=== PATIENT | female | born 1955 | race Caucasian/White ===

== ENCOUNTER → 2019-04-16 | Outpatient (REF) | payer MEDICARE ==
[2019-04-16 19:03] LABS: APPEARANCE, URINE CLEAR (CLEAR); BACTERIA, URINE AUTO NEGATIVE (NEGATIVE); BILIRUBIN, URINE AUTO NEGATIVE (NEGATIVE); BLOOD, URINE BLOOD NEGATIVE (NEGATIVE); COLOR, URINE YELLOW (YELLOW); GLUCOSE, URINE (UA) AUTO NEGATIVE (NEGATIVE); KETONE, URINE AUTO NEGATIVE (NEGATIVE); LEUKOCYTE ESTERASE, URINE AUTO NEGATIVE (NEGATIVE); MUCUS, URINE SMALL (NEGATIVE); NITRITE, URINE AUTO NEGATIVE (NEGATIVE); PROTEIN, URINE AUTO NEGATIVE (NEGATIVE); RBC, URINE AUTO 1 /HPF (0-3); SPECIFIC GRAVITY URINE AUTO 1.017 (1.002-1.035); SQUAMOUS EPITHELIAL CELL UR AU 1 /HPF (0-6); UROBILINOGEN, URINE AUTO 0.2 mg/dL (0.0-2.0); WBC, URINE AUTO 0 /HPF (0-3)
== END ==
LOC: M SMT 17:10
PROVIDERS: ATTEND Nurse Practitioner Women's Health
DX: N30.80 Other cystitis without hematuria (principal)
CPT/HCPCS: 81001; 87086; 88108; G0463

== ENCOUNTER → 2020-04-18 | Outpatient (REF) | payer MEDICARE ==
[2020-04-18 19:18] LABS: APPEARANCE, URINE TURBID (CLEAR); BACTERIA, URINE AUTO NEGATIVE (NEGATIVE); BILIRUBIN, URINE AUTO NEGATIVE (NEGATIVE); BLOOD, URINE BLOOD NEGATIVE (NEGATIVE); COLOR, URINE YELLOW (YELLOW); GLUCOSE, URINE (UA) AUTO NEGATIVE (NEGATIVE); KETONE, URINE AUTO TRACE mg/dL (NEGATIVE); LEUKOCYTE ESTERASE, URINE AUTO 1+ (NEGATIVE); MUCUS, URINE SMALL (NEGATIVE); NITRITE, URINE AUTO NEGATIVE (NEGATIVE); PROTEIN, URINE AUTO 1+ mg/dL (NEGATIVE); RBC, URINE AUTO 0 /HPF (0-3); SQUAMOUS EPITHELIAL CELL UR AU 1 /HPF (0-6); UROBILINOGEN, URINE AUTO 0.2 mg/dL (0.0-2.0); WBC, URINE AUTO 3 /HPF (0-3)
== END ==
LOC: M SMT 16:56
PROVIDERS: ATTEND Nurse Practitioner Women's Health
DX: N30.80 Other cystitis without hematuria (principal)
CPT/HCPCS: 81001; 87086; G0463

== ENCOUNTER → 2021-04-05 | Outpatient (REF) | payer MEDICARE ==
[2021-04-05 13:28] LABS: APPEARANCE, URINE HAZY (CLEAR); BACTERIA, URINE AUTO NEGATIVE (NEGATIVE); BILIRUBIN, URINE AUTO NEGATIVE (NEGATIVE); BLOOD, URINE BLOOD NEGATIVE (NEGATIVE); CALCIUM OXALATE CRYSTALS SMALL; COLOR, URINE YELLOW (YELLOW); GLUCOSE, URINE (UA) AUTO 3+ mg/dL (NEGATIVE); KETONE, URINE AUTO NEGATIVE (NEGATIVE); LEUKOCYTE ESTERASE, URINE AUTO NEGATIVE (NEGATIVE); MUCUS, URINE SMALL (NEGATIVE); NITRITE, URINE AUTO NEGATIVE (NEGATIVE); PROTEIN, URINE AUTO 1+ mg/dL (NEGATIVE); RBC, URINE AUTO 2 /HPF (0-3); SPECIFIC GRAVITY URINE AUTO 1.016 (1.002-1.035); SQUAMOUS EPITHELIAL CELL UR AU 1 /HPF (0-6); UROBILINOGEN, URINE AUTO 0.2 mg/dL (0.0-2.0); WBC, URINE AUTO 5 /HPF (0-3)
== END ==
LOC: M SMT 12:41
PROVIDERS: ATTEND Nurse Practitioner Women's Health
DX: N30.80 Other cystitis without hematuria (principal); Z87.442 Personal history of urinary calculi; N28.1 Cyst of kidney, acquired; R31.0 Gross hematuria
CPT/HCPCS: 81001; 87086; 88108; G0463

== ENCOUNTER 2021-07-19 07:32 | Day surgery (SDC) | payer MEDICARE ==
[~2021-07-19] VITALS: Ht 160 cm; Wt 103.9 kg
[~2021-07-19 07:32] MED LIST: AMLO1TAB24 PO; CIPROFLOXACIN 400 MG in IV 1 EA IV ONE; COLC0.6T47 PO; COLE1TAB PO; CONRAY-60 60% 50ML VIAL (Q9961) As Ordered ONE; CREO3600 PO; DULO30CA9 PO; ENAL1TAB46 PO; FURO20TA2 PO; ISOS1TAB35 PO; LEVOTAB10 PO; LIDOCAINE 2% 100MG/5ML SDV (FOR ANES.) As Ordered ONE; LIVA2TAB PO; LR 1,000 ML IV ONE; METF500T13 PO; MIDAZOLAM INJ 2MG/2ML VIAL (J2250 PER 1MG) As Ordered ONE; NITR0.4S14 SL; PROTPAK PO; RANE1000 PO; ROPI0.5T3 PO; fentaNYL 100 MCG/2 ML INJECTION (J3010) As Ordered ONE; propofoL 200 MG/20 ML VIAL As Ordered ONE
[2021-07-19] MEDS ORDERED: ROCURONIUM BROMIDE 50 MG/5 ML VIAL As Ordered ONE (07:46)
[2021-07-19] MEDS ORDERED: ONDANSETRON 4MG/2ML VIAL As Ordered ONE (07:49)
[2021-07-19] MEDS ORDERED: GLYCOPYRROLATE INJ 0.2 MG/ML 2 ML VIAL As Ordered ONE (07:49)
[2021-07-19] MEDS ORDERED: ACETAMINOPHEN 1000MG 100ML IV BTL (OFIRMEV) (J0131 PER 10MG) As Ordered ONE (09:05)
[2021-07-19] MEDS ORDERED: METOCLOPRAMIDE INJ 10MG/2ML VIAL (J2765 PER 1) As Ordered ONE (09:05)
[2021-07-19] MEDS ORDERED: ESMOLOL INJ 100MG/10ML VIAL As Ordered ONE (09:07)
--- NOTE | 2021-07-19 09:27 | REP ---
INDICATION: BILATERAL URETEROSCOPY. COMPARISON: None. TECHNIQUE: Intraoperative fluoroscopic imaging using portable C-arm technique. FINDINGS: Images demonstrate bilateral ureteral stent placement. Total fluoroscopic time 28 seconds. IMPRESSION: Status post bilateral ureteral stent placement. <Electronically signed by Star Valentin > 07/19/21 [id number]
[2021-07-19] MEDS ORDERED: OXYB5TAB10 PO (09:42)
[2021-07-19 10:00] VITALS: BP 148/67
[2021-07-19] MEDS ORDERED: fentaNYL 100 MCG/2 ML INJECTION (J3010) IV PRN (10:20)
[2021-07-19] MEDS ORDERED: ONDANSETRON 4MG/2ML VIAL IV PRN (10:20)
[2021-07-19] MEDS ORDERED: LR 1,000 ML IV SCH (10:20)
[2021-07-19] MEDS ORDERED: ACETAMINOPHEN TAB 650MG DOSE (2X325MG) PO PRN (10:25)
[2021-07-19] MEDS ORDERED: oxyBUTYnin 5 MG TAB PO PRN (10:25)
--- NOTE | 2021-07-19 10:42 | RO ---
OPERATIVE NOTE DATE OF OPERATION: 07/19/2021 PREOPERATIVE DIAGNOSIS: Gross hematuria. POSTOPERATIVE DIAGNOSIS: Gross hematuria. PROCEDURE: Cystoscopy, bilateral ureteroscopy, bilateral retrograde pyelogram with intraop interpretation of images, bilateral ureteral stent placement. SURGEON: Darren Schrader MD INFORMATION TECHNOLOGY ADVISOR: None. ANESTHESIA: General. OPERATIVE INDICATIONS: This is a 65-year-old female who has had persistent gross hematuria. She has undergone an outpatient workup which was unremarkable. Since she has continued to have hematuria it was recommended she get more thorough workup here in the operating room. DESCRIPTION OF PROCEDURE: The patient was brought to the operating room and general anesthesia was induced. Prophylactic antibiotics were infused. She was placed in dorsal lithotomy position and prepped and draped in usual sterile fashion. Rigid cystoscope was inserted in urethral meatus and advanced to the bladder. The bladder was then thoroughly examined and no abnormalities were seen inside the bladder. The left ureteral orifice effluxed clear yellow urine. While observing the right ureteral orifice I did not see any efflux from that side. At this point a guidewire was advanced up the right collecting system. I advanced a ureteral access sheath up the right collecting system. I went up the access sheath with a flexible ureteroscope and examined the right kidney thoroughly. There were no masses or stones. No abnormalities were seen inside the right kidney. A retrograde pyelogram was performed and was notable for mild right hydronephrosis with no extravasation. There were no filling defects. I then withdrew the ureteroscope along with the access sheath and no abnormalities were seen inside the right ureter either. I utilized the guidewire to advance a 6-Angolan x 22-32 cm JJ ureteral stent up the right collecting system. The wire was removed and there were adequate curls of the stent in right renal pelvis and in the bladder. At this point I advanced a guidewire up the left collecting system. I advanced a ureteral access sheath up the left collecting system. I went up the access sheath with a flexible ureteroscope and examined the left kidney thoroughly. There were no stones or masses. There were no abnormalities seen inside any of the calyces. A retrograde pyelogram was performed and was notable for mild left hydronephrosis, with no extravasation. There were no filling defects. I then withdrew the ureteroscope along with the access sheath and no abnormalities were seen inside the left ureter. I utilized the guidewire to advance a 6-Angolan x 22-32 cm JJ ureteral stent up the left collecting system. The wire was removed and there were adequate curls of the stent in the left renal pelvis and in the bladder. At this point the bladder was emptied of all fluids and this marked the conclusion of the procedure. The patient was taken out of the dorsal lithotomy position, awakened from anesthesia and transferred to the recovery room in stable condition. ESTIMATED BLOOD LOSS: 5 mL. COMPLICATIONS: None. SPECIMENS: None. PLAN: The patient will follow up in the urology clinic in about two weeks for stent removal. [facility]
== END 2021-07-19 10:37 | disposition home or self-care (01) ==
LOC: M SDC 07:32
PROVIDERS: ATTEND Urology
DX: R31.0 Gross hematuria (principal); E78.5 Hyperlipidemia, unspecified; E11.9 Type 2 diabetes mellitus without complications; K21.9 Gastro-esophageal reflux disease without esophagitis; E04.0 Nontoxic diffuse goiter; K57.90 Diverticulosis of intestine, part unspecified, without perforation or abscess without bleeding; Z79.899 Other long term (current) drug therapy; G47.33 Obstructive sleep apnea (adult) (pediatric); Z79.84 Long term (current) use of oral hypoglycemic drugs; I50.9 Heart failure, unspecified; Z88.1 Allergy status to other antibiotic agents; Z88.8 Allergy status to other drugs, medicaments and biological substances; Z86.16 Personal history of COVID-19
CPT/HCPCS: 52332; 76000; C1769; C1894; C2617; J0131; J0744; J2250; J2405; J2765; J3010; Q9961; U0002

== ENCOUNTER → 2024-02-11 | Outpatient (CLI) | payer MEDICARE ==
[~2024-02-11] MED LIST changes: -CIPROFLOXACIN 400 MG in IV 1 EA IV ONE; -CONRAY-60 60% 50ML VIAL (Q9961) As Ordered ONE; -LIDOCAINE 2% 100MG/5ML SDV (FOR ANES.) As Ordered ONE; -LR 1,000 ML IV ONE; -MIDAZOLAM INJ 2MG/2ML VIAL (J2250 PER 1MG) As Ordered ONE; +OXYB5TAB14 PO; -ROPI0.5T3 PO; +ROPI0.5T33 PO; -fentaNYL 100 MCG/2 ML INJECTION (J3010) As Ordered ONE; -propofoL 200 MG/20 ML VIAL As Ordered ONE
== END ==
LOC: M RAD 09:18
PROVIDERS: ATTEND Urology
DX: Z87.442 Personal history of urinary calculi (principal); K57.90 Diverticulosis of intestine, part unspecified, without perforation or abscess without bleeding